=== PATIENT | female | born 1940 | race Caucasian/White ===

== ENCOUNTER 2022-01-10 06:25 | Inpatient (IN) | payer MEDICARE, BC ==
[2022-01-07 14:46] VITALS: BMI 26.6
[2022-01-10] MEDS ORDERED: Lidocaine 1% MPF 2 ML VIAL ONE (06:45)
[2022-01-10] MEDS ORDERED: Methylene Blue 50 MG/10 ML AMPUL ONE (08:05)
[2022-01-10] MEDS ORDERED: Bupivacaine 0.25% HCL 30 ML VIAL ONE (08:05)
[2022-01-10] MEDS ORDERED: PROPOFOL 20 ML ONE (08:21)
[2022-01-10] MEDS ORDERED: Fentanyl 100 MCG/2 ML VIAL ONE ×3 (08:21→13:12)
[2022-01-10] MEDS ORDERED: Ketorolac Tromethamine 30 MG/ML VIAL ONE (08:53)
[2022-01-10] MEDS ORDERED: Dexamethasone 4 mg/ml Vial ONE (08:59)
[2022-01-10] MEDS ORDERED: Ondansetron PF 4 MG/2 ML Vial ONE (08:59)
[2022-01-10] MEDS ORDERED: Lidocaine 1% PF 5 ML VIAL ONE (08:59)
[2022-01-10] MEDS ORDERED: Rocuronium Bromide 10 MG/ML (10ML VIAL) ONE (08:59)
[2022-01-10] MEDS ORDERED: Furosemide 20 MG/2 ML VIAL ONE (09:36)
[2022-01-10] MEDS ORDERED: PHENYLEPHRINE-NS 100 MCG/ML 10 ML SYRINGE ONE (10:08)
[2022-01-10] MEDS ORDERED: Glycopyrrolate 0.2 MG/ML 5 ML SYRINGE ONE (10:08)
[2022-01-10] MEDS ORDERED: ceFAZolin 2 GM/Dextrose 50 ML IVPB ONE (10:13)
[2022-01-10] MEDS ORDERED: Lidocaine 2% PF 5 ML VIAL ONE (11:01)
[2022-01-10] MEDS ORDERED: SUGAMMADEX SODIUM 200 MG/2 ML VIAL ONE (11:08)
[2022-01-10] MEDS ORDERED: ePHEDrine Sulfate 50 MG/10 ML VIAL ONE (12:03)
[2022-01-10] MEDS ORDERED: HYDROcodone/Acetaminophen 10/325 mg Tablet PO PRN (15:25)
[2022-01-10] MEDS ORDERED: Simethicone Chewable 80 MG TAB PO PRN (15:25)
[2022-01-10] MEDS ORDERED: Bisacodyl 10 MG SUPP PR PRN (15:25)
[2022-01-10] MEDS ORDERED: Witch Hazel-Glycerin 1 EACH JAR TOP PRN (15:25)
[2022-01-10] MEDS ORDERED: Morphine 2 MG/ML VIAL SLOW IVP PRN (15:25)
[2022-01-10] MEDS ORDERED: Ondansetron PF 4 MG/2 ML Vial IVP PRN (15:25)
[2022-01-10] MEDS ORDERED: diphenhydrAMINE 25 MG CAP PO PRN (15:25)
[2022-01-10] MEDS: Ketorolac Tromethamine 30 MG/ML VIAL IVP SCH (17:25)
[2022-01-10] MEDS: Acetaminophen 325 MG TAB PO PRN (17:33)
[2022-01-10] MEDS: Dextrose 5 %-0.45 % NaCl 1,000 ML IV SCH ×2 (20:06→23:36)
[2022-01-10] MEDS: Atorvastatin Calcium 20 MG TAB PO SCH (21:47)
[2022-01-10] MEDS: Docusate Calcium (SURFAK) 240 MG CAP PO PRN (21:47)
[2022-01-10] MEDS: Zolpidem Tartrate 5 MG TAB PO PRN (21:48)
[2022-01-10] MEDS: Allopurinol 100 MG TAB PO SCH (21:48)
[2022-01-10] MEDS: Lisinopril 20 MG TAB PO SCH (21:48)
[2022-01-10] MEDS: Metamucil PACK PO SCH (21:50)
[2022-01-11] MEDS: Ibuprofen 400 MG TAB PO PRN ×5 (00:46→20:35)
[2022-01-11] MEDS: Acetaminophen 325 MG TAB PO PRN ×5 (00:47→20:36)
[2022-01-11] MEDS: Ketorolac Tromethamine 30 MG/ML VIAL IVP SCH (01:03)
[2022-01-11 04:30] LABS: Mean Corpuscular HGB CONC 33.5 g/dL (32.0-36.0); Mean Corpuscular Hemoglobin 31.3 pg (27.0-33.0); Mean Corpuscular Volume 93.2 fl (81.6-98.3); Mean Platelet Volume 9.8 fl (7.4-10.4); Platelet Count 188 10x3/uL (150-450); RBC Distribution Width 13.1 % (11.5-14.5); Red Blood Cell (RBC) Count 3.84 10x6/uL (3.90-5.03); White Blood Cell (WBC) Count 13.4 10x3/uL (3.5-10.5)
[2022-01-11] MEDS: Dextrose 5 %-0.45 % NaCl 1,000 ML IV SCH ×3 (07:48→19:23)
[2022-01-11] MEDS: Amlodipine 5 MG TAB PO SCH (08:39)
[2022-01-11] MEDS: Metamucil PACK PO SCH ×2 (08:39→20:36)
[2022-01-11] MEDS: Allopurinol 100 MG TAB PO SCH ×2 (08:39→20:36)
[2022-01-11] MEDS: Docusate Calcium (SURFAK) 240 MG CAP PO PRN ×2 (09:25→20:35)
[2022-01-11] MEDS: Lisinopril 20 MG TAB PO SCH (20:35)
[2022-01-11] MEDS: Atorvastatin Calcium 20 MG TAB PO SCH (20:36)
[2022-01-11] MEDS: Zolpidem Tartrate 5 MG TAB PO PRN (22:10)
[2022-01-12 04:37] LABS: Hemoglobin 11.6 g/dL (12.0-15.5); Mean Corpuscular HGB CONC 33.3 g/dL (32.0-36.0); Mean Corpuscular Hemoglobin 32.1 pg (27.0-33.0); Mean Corpuscular Volume 96.4 fl (81.6-98.3); Mean Platelet Volume 10.2 fl (7.4-10.4); Platelet Count 161 10x3/uL (150-450); RBC Distribution Width 13.2 % (11.5-14.5); Red Blood Cell (RBC) Count 3.61 10x6/uL (3.90-5.03); White Blood Cell (WBC) Count 8.7 10x3/uL (3.5-10.5)
[2022-01-12] MEDS: Metamucil PACK PO SCH (08:40)
[2022-01-12] MEDS: Amlodipine 5 MG TAB PO SCH (08:40)
[2022-01-12] MEDS: Allopurinol 100 MG TAB PO SCH (08:40)
[2022-01-12] MEDS: Acetaminophen 325 MG TAB PO PRN (08:41)
[2022-01-12 08:50] VITALS: BP 163/75; TEMP 97.8
[2022-01-12] MEDS: Dextrose 5 %-0.45 % NaCl 1,000 ML IV SCH (09:06)
== END 2022-01-12 09:50 | disposition home or self-care (01) | DRG 747 ==
LOC: CSHSDC 06:25 → CSHPP 15:20
PROVIDERS: ADMIT Obstetrics & Gynecology; ATTEND Obstetrics & Gynecology
PROC: 0UQF0ZZ Repair Cul-de-sac, Open Approach (ICD-10-PCS; principal; 2022-01-10)
PROC: 0JQC0ZZ Repair Pelvic Region Subcutaneous Tissue and Fascia, Open Approach (ICD-10-PCS; 2022-01-10)
PROC: 0USG0ZZ Reposition Vagina, Open Approach (ICD-10-PCS; 2022-01-10)
PROC: 0WQN0ZZ Repair Female Perineum, Open Approach (ICD-10-PCS; 2022-01-10)
PROC: 0TJB8ZZ Inspection of Bladder, Via Natural or Artificial Opening Endoscopic (ICD-10-PCS; 2022-01-10)
DX: N81.10 Cystocele, unspecified (principal); N81.6 Rectocele; N81.89 Other female genital prolapse; Z20.822 Contact with and (suspected) exposure to COVID-19; N81.5 Vaginal enterocele; Z96.652 Presence of left artificial knee joint; I10 Essential (primary) hypertension; E78.00 Pure hypercholesterolemia, unspecified; K21.9 Gastro-esophageal reflux disease without esophagitis; N32.81 Overactive bladder; R33.9 Retention of urine, unspecified; M10.9 Gout, unspecified; E78.5 Hyperlipidemia, unspecified; I83.90 Asymptomatic varicose veins of unspecified lower extremity; Z85.828 Personal history of other malignant neoplasm of skin; Z90.710 Acquired absence of both cervix and uterus; Z87.440 Personal history of urinary (tract) infections; Z98.41 Cataract extraction status, right eye; Z98.42 Cataract extraction status, left eye; Z79.899 Other long term (current) drug therapy; Z79.82 Long term (current) use of aspirin; Z88.2 Allergy status to sulfonamides; Z88.7 Allergy status to serum and vaccine
CPT/HCPCS: 36415; 85027; C1713; J0690; J1100; J1885; J1940; J2001; J2405; J2704; J3010; J7042; Q9968; S0020

== ENCOUNTER 2022-11-21 13:40 | Outpatient (CLI) | payer MEDICARE, BC | END 2022-11-21 13:41 | disposition home or self-care (01) | LOC: CSHMRI 13:40 | PROVIDERS: ATTEND Internal Medicine | DX: M48.061 Spinal stenosis, lumbar region without neurogenic claudication (principal); M47.816 Spondylosis without myelopathy or radiculopathy, lumbar region; M51.36 Other intervertebral disc degeneration, lumbar region; M41.86 Other forms of scoliosis, lumbar region; M48.07 Spinal stenosis, lumbosacral region; Z98.890 Other specified postprocedural states | CPT/HCPCS: 72148 ==

== ENCOUNTER 2022-12-08 14:20 | Outpatient (CLI) | payer MEDICARE, BC | END 2022-12-08 14:21 | disposition home or self-care (01) | LOC: CSHRAD 14:20 | PROVIDERS: ATTEND Neurological Surgery | DX: M54.16 Radiculopathy, lumbar region (principal); M41.85 Other forms of scoliosis, thoracolumbar region; M47.816 Spondylosis without myelopathy or radiculopathy, lumbar region; Z98.890 Other specified postprocedural states | CPT/HCPCS: 72110 ==

== ENCOUNTER 2025-08-11 13:48 | Outpatient (CLI) | payer MEDICARE, BC | END 2025-08-11 13:49 | disposition home or self-care (01) | LOC: CSHULT 13:48 | PROVIDERS: ATTEND Nurse Practitioner Family | DX: N39.0 Urinary tract infection, site not specified (principal); R39.198 Other difficulties with micturition | CPT/HCPCS: 76770 ==